=== PATIENT | female | born 1950 | race African-American/Black ===

== ENCOUNTER 2020-09-10 15:57 | Emergency (ER) | payer MEDICARE, OTHER, SELFPAY ==
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
[2020-09-10 16:09] VITALS: BP 148/70; PULSE 106; RESP 20; TEMP 36.2; O2SAT 98
== END 2020-09-10 16:39 | disposition home or self-care (01) ==
PROVIDERS: Emergency Provider Registered Nurse
DX: N39.0 Urinary tract infection, site not specified (principal); E11.9 Type 2 diabetes mellitus without complications; E78.5 Hyperlipidemia, unspecified; I10 Essential (primary) hypertension; M10.9 Gout, unspecified; Z85.3 Personal history of malignant neoplasm of breast
CPT/HCPCS: 81003; 87086; 87088; 99213; G0463

== ENCOUNTER 2021-06-01 14:25 | Emergency (ER) | payer MEDICARE, OTHER, SELFPAY ==
[2021-06-01 14:33] VITALS: BP 179/70; PULSE 82; RESP 16; TEMP 36.6; O2SAT 97
--- NOTE | 2021-06-01 14:51 | ED.GENADULT ---
HPI - General Adult General Chief complaint: Upper Respiratory Infection Stated complaint: sinus issues Source: patient Mode of arrival: ambulatory Limitations: no limitations History of Present Illness HPI narrative: Patient is a 71-year-old -[place] female presents to urgent care via POV for evaluation of a sinus problem that has been present for 4 days. Additionally, she reports nasal congestion, sweats, frontal headaches, facial swelling and pain, tender lymph nodes, fatigue, and diarrhea. She reports diarrhea to be intermittent. Diarrhea is watery and brown in color. Claritin improves symptoms. Nothing worsens symptoms. Denies known exposure to sick contacts. Patient reports she is fully vaccinated against Covid. Related Data Home Medications Medication Instructions Recorded Confirmed allopurinol 100 mg PO DAILY 09/10/20 amlodipine 5 mg PO DAILY 09/10/20 insulin degludec [Tresiba SUBCUT 09/10/20 FlexTouch U-100] metformin 850 mg PO DAILY 09/10/20 olmesartan 20 mg PO DAILY 09/10/20 06/01/21 tramadol 5 mg PO HS 09/10/20 atorvastatin 10 mg PO DAILY 06/01/21 06/01/21 Allergies Allergy/AdvReac Type Severity Reaction Status Date / Time Sulfa (Sulfonamide Allergy Unknown Rash Verified 06/01/21 14:39 Antibiotics) Review of Systems Review of Systems: Denies history of COPD, bronchitis, asthma, and pneumonia. Denies current/past tobacco use. Denies fever, sweats, chills, change in appetite, skin color changes, dizziness, lymphadenopathy, ear pain/drainage, chest pain, heart murmurs, heart palpitations, shortness of breath, wheezing, cyanosis, hemoptysis, hoarseness, orthopnea, pleuritic pain, nausea, vomiting, and myalgias. [facility] Past Medical History Medical History Breast cancer Diabetes mellitus Gout Hyperlipidemia Hypertension Surgical History Surgical History H/O sinus surgery H/O: hysterectomy History of lumpectomy of right breast Social History Social History Gender identity (if verbalized by the patient): Female Comments I have reviewed and agree with the patient's past medical, surgical, social, and family hx as documented by the RN. There is no relevant family history pertinent to the presenting complaint. Exam Narrative: GENERAL: Well-appearing, well-nourished, and in no acute distress. HEAD: Normocephalic, atraumatic. Moderate maxillary and frontal sinus tenderness appreciated. Mild facial swelling appreciated over maxillary sinuses. EYES: PERRLA and EOMI. No evidence of erythema, swelling, or drainage. ENT: Bilateral external ears and ear canals normal. Bilateral TMs are normal. No TM perforation. Nares clear, no rhinorrhea or epistaxis. Bilateral turbinates without erythema/ swelling. Mucous membranes moist and pink. Uvula is midline without erythema and swelling. No evidence of petechial rash, cobblestoning, lesions, ulcers, erythema, swelling, exudates, peritonsillar abscess, tenting, or drooling. Breath odor and voice normal. NECK: Supple. Bilateral submandibular lymphadenopathy appreciated. No nuchal rigidity or clavicular lymphadenopathy appreciated. CHEST: Bilateral lung holden are clear to auscultation. No respiratory distress. No evidence of cough or pleuritic cp upon examination. HEART: Regular rate and rhythm. No murmur, gallop, or rub heard. EXTREMITIES: Normal range of motion. No edema. SKIN: Warm, dry, no rash. NEURO: No focal deficits. Alert and oriented x3. Course Vital Signs Vital signs: Vital Signs Temperature 97.8 F 06/01/21 14:33 Pulse Rate 82 06/01/21 14:33 Respiratory Rate 16 06/01/21 14:33 Blood Pressure 179/70 H 06/01/21 14:33 Pulse Oximetry 97 06/01/21 14:33 Temperature 97.8 F 06/01/21 14:33 Pulse Rate 82 06/01/21 14:33 Respiratory Rate
== END 2021-06-01 15:13 | disposition home or self-care (01) ==
PROVIDERS: Emergency Provider Nurse Practitioner Family
DX: J01.90 Acute sinusitis, unspecified (principal); Z20.822 Contact with and (suspected) exposure to COVID-19; E11.9 Type 2 diabetes mellitus without complications; M10.9 Gout, unspecified; E78.5 Hyperlipidemia, unspecified; I10 Essential (primary) hypertension; Z85.3 Personal history of malignant neoplasm of breast
CPT/HCPCS: 87426; 99213; C9803; G0463